=== PATIENT | male | born 1945 | race Caucasian/White ===

== ENCOUNTER 2022-12-16 14:01 | Outpatient (REF) | payer MEDICARE, SELFPAY ==
[2022-12-16 14:53] LABS: HCT 43.7 % (40.0-50.0); HGB 14.5 g/dL (13.5-17.5); MCH 27.7 pg (27.0-33.0); MCHC 33.2 % (32.0-36.0); MCV 84 fL (80-95); MPV 12.3 fL (8.0-11.0); Platelet Count 269 10^3/uL (130-400); RBC 5.23 10^6/uL (4.36-5.78); RDW 14.9 % (11.8-14.1); RDW-SD 45.1 fL; WBC 6.37 10^3/uL (4.4-10.8)
[2022-12-16 15:16] LABS: ALT 29 U/L (16-63); AST 32 U/L (15-37); Albumin 3.6 g/dL (3.4-5.0); Alkaline Phosphatase 100 U/L (46-116); Anion Gap 8.5 mmol/L (3-11); BUN 21 mg/dL (7-18); Bilirubin, Total 0.4 mg/dL (0.2-1.0); CO2 29.5 mmol/L (21.0-32.0); CREATININE 1.1 mg/dL (0.70-1.30); Calcium 8.4 mg/dL (8.5-10.1); Chloride 105 mmol/L (98-107); Estimated GFR 69.57 (mL/min/1.73m2); Glucose 94 mg/dL (74-106); Magnesium 1.9 mg/dL (1.8-2.4); Potassium 3.2 mmol/L (3.5-5.1); Sodium 143 mmol/L (136-145); TSH (W/Ref FT4) 1.58 uIU/mL (0.36-3.74); Total Protein 7.7 g/dL (6.4-8.2)
== END 2022-12-16 14:02 | disposition home or self-care (01) ==
LOC: NCHCN 14:01
PROVIDERS: Visit Provider Family Medicine
DX: I10 Essential (primary) hypertension (principal); E78.5 Hyperlipidemia, unspecified; M15.4 Erosive (osteo)arthritis; L40.50 Arthropathic psoriasis, unspecified
CPT/HCPCS: 80053; 85027; 83735; 84443

== ENCOUNTER → 2023-06-26 03:26 | Outpatient (CLI) | payer MEDICARE, SELFPAY ==
[2023-06-26 09:24] LABS: CREATININE 1.1 mg/dL (0.70-1.30); Estimated GFR 69.14 (mL/min/1.73m2)
[2023-06-26] MEDS: Omnipaque 350 MG/ML 500 ML BTL-Imaging package 100 ML IJ (10:02)
[2023-06-26] MEDS: Normal Saline - Diluent 50 ML VIAL IJ (10:03)
[2023-06-26] MEDS: Normal Saline Flush 10 ML SYR IVP (10:03)
--- NOTE | 2023-06-26 10:04 | DI.CT_ITS ---
Exam(s) CT ABDOMEN PELVIS W EXAM: CT ABDOMEN PELVIS W CLINICAL HISTORY: N28.1 Cyst of kidney acquired TECHNIQUE: Imaging Protocol: Axial computed tomography images with coronal and sagittal reformatted images were created and reviewed. CONTRAST MATERIAL: Intravenous: Omnipaque 350 Contrast volume:100 mL Oral: No COMPARISON: CT CT CHEST WITHOUT CONTRAST MATERIAL from 05/23/2023 FINDINGS: ABDOMEN: Lung Bases: There is a small hiatal hernia. Liver: Normal density. There are several tiny less than 3 mm hypodensities in the liver. They are to o small for further characterization, but statistically likely reflect small cysts. No suspicious he patic lesions are seen. Portal, Superior Mesenteric, and Splenic Veins: Unremarkable. Gallbladder and Biliary Tract: No radiodense calculus or dilation. Pancreas: Normal density, no abnormal calcifications or inflammatory process. Spleen: Normal. Adrenals: No masses seen. Kidneys: Normal size, contour and axis. No radiodense stones or obstructive uropathy. There are bilat eral cysts seen in the kidneys. The cysts are homogeneous of the low density. No enhancing nodules are seen. The findings are most consistent with simple cysts. No suspicious cystic or solid masses are seen in the kidneys. No follow-up is recommended. Abdominal Aorta: Abdominal portion non-dilated. Atherosclerotic calcification is present. Bowel: Diverticula are seen in the colon but no evidence of acute diverticulitis. There is no eviden ce of bowel obstruction or bowel wall thickening. The stomach is incompletely distended limiting deborah luation. There is no evidence of appendicitis. Peritoneal Cavity: No ascites, collection or mesenteric inflammatory response. No free air. Lymph Nodes: Within normal limits. Bones: Within normal limits for the patient's age. Posterior spinal surgery is seen at L5-S1. There is an old compression fracture deformity at L1. Soft Tissues: There is a small fat containing umbilical hernia. PELVIS: Bladder: Symmetric distention, no gross wall thickening. Reproductive Organs: There is marked enlargement of the prostate gland impinging in the base of the b ladder. Lymph Nodes: Within normal limits. Bones: Within normal limits for the patient's age. IMPRESSION: 1. Bilateral renal cysts. The cysts appear simple. No suspicious solid renal masses. No follow-up is recommended. 2. Marked prostatic enlargement. 3. Colonic diverticulosis without evidence of acute diverticulitis. RADIATION DOSE DELIVERED: 1,024.04mGy.cm Total DLP DATA REPOSITORY: All CT scans at this facility are submitted to the National Radiology Data Registry (NRDR) Dose Index Registry (DIR) with the [employer] ([employer]). RADIATION OPTIMIZATION: All CT scans at this facility use at least one of these dose optimization te chniques: automated exposure control; mA and/or kV adjustment per patient size (includes targeted exa ms where dose is matched to clinical indication); or iterative reconstruction.
== END ==
PROVIDERS: Visit Provider Family Medicine
DX: N28.1 Cyst of kidney, acquired (principal); N40.1 Benign prostatic hyperplasia with lower urinary tract symptoms; K57.30 Diverticulosis of large intestine without perforation or abscess without bleeding
CPT/HCPCS: 74177; 82565

== ENCOUNTER 2024-07-07 10:29 | Outpatient (REF) | payer MEDICARE, SELFPAY ==
[2024-07-07 14:11] LABS: Abs Immature Grans 0.01 10^3/uL (0.0-0.06); Absolute Basophil Count 0.05 10^3/uL (0.0-0.2); Absolute Eosinophil Count 0.07 10^3/uL (0.0-0.7); Absolute Lymphocyte Count 2.25 10^3/uL (1.2-3.4); Absolute Monocyte Count 0.45 10^3/uL (0.1-0.8); Absolute Neutrophil Count 2.92 10^3/uL (1.2-6.7); Basophils % 0.9 %; Eosinophils % 1.2 %; HCT 41.7 % (40.0-50.0); HGB 13.9 g/dL (13.5-17.5); Immature Grans % 0.2 %; Lymphocytes % 39.1 %; MCH 28.6 pg (27.0-33.0); MCHC 33.3 % (32.0-36.0); MCV 86 fL (80-95); MPV 12.1 fL (8.0-11.0); Monocytes % 7.8 %; Neutrophils % 50.8 %; Platelet Count 199 10^3/uL (130-400); RBC 4.86 10^6/uL (4.36-5.78); RDW 14.4 % (11.8-14.1); RDW-SD 45.4 fL; WBC 5.75 10^3/uL (4.4-10.8)
[2024-07-07 14:37] LABS: ALT 33 U/L (16-63); AST 32 U/L (15-37); Albumin 4.4 g/dL (3.4-5.0); Alkaline Phosphatase 68 U/L (46-116); Anion Gap 9.6 mmol/L (3-11); BUN 24 mg/dL (7-18); Bilirubin, Total 0.5 mg/dL (0.2-1.0); CO2 29.4 mmol/L (21.0-32.0); CREATININE 1.3 mg/dL (0.70-1.30); Calcium 9.2 mg/dL (8.5-10.1); Calculated LDL 54 mg/dL (<100); Chloride 109 mmol/L (98-107); Cholesterol 121 mg/dL (<200); Estimated GFR 56.23 (mL/min/1.73m2); Glucose 95 mg/dL (74-106); HDL Cholesterol 44 mg/dL (>or=40); Sodium 148 mmol/L (136-145); Total Protein 7.5 g/dL (6.4-8.2); Triglyceride 119 mg/dL (<150)
== END 2024-07-07 10:30 | disposition home or self-care (01) ==
LOC: NCHCN 10:29
PROVIDERS: PCP Family Medicine; Visit Provider Family Medicine
DX: I15.8 Other secondary hypertension (principal); E78.5 Hyperlipidemia, unspecified; L40.50 Arthropathic psoriasis, unspecified
CPT/HCPCS: 80053; 80061; 85025